=== PATIENT | male | born 1965 | race Caucasian/White ===

== ENCOUNTER 2021-11-01 12:48 | Outpatient (CLI) | payer BC ==
[2021-11-01 15:21] LABS: Hemoglobin 14.4 g/dL (13.5-17.5); Mean Corpuscular HGB CONC 32.9 g/dL (32.0-36.0); Mean Corpuscular Hemoglobin 29.9 pg (27.0-33.0); Mean Corpuscular Volume 90.9 fl (81.2-95.1); Mean Platelet Volume 11.2 fl (7.4-10.4); Platelet Count 215 10x3/uL (150-450); RBC Distribution Width 12.4 % (11.5-14.5); Red Blood Cell (RBC) Count 4.82 10x6/uL (4.32-5.72); White Blood Cell (WBC) Count 6.3 10x3/uL (3.5-10.5)
[2021-11-01 15:54] LABS: Anion Gap 13 mmol/L (10-20); BUN (Urea Nitrogen) 15 mg/dL (8.4-25.7); Calc. Creatinine Clearance 0 mL/min (70-130); Calcium 9.3 mg/dL (7.8-10.44); Carbon Dioxide 27 mmol/L (22-29); Chloride 102 mmol/L (98-107); Glucose 215 mg/dL (70-105); Potassium 4.2 mmol/L (3.5-5.1); Sodium 138 mmol/L (136-145)
[2021-11-02 08:59] LABS: SARS-CoV-2 PCR by NAA Not Detected (NotDetected)
== END 2021-11-01 12:49 | disposition home or self-care (01) ==
LOC: LABBT 12:48
PROVIDERS: ATTEND Neurological Surgery
DX: Z01.818 Encounter for other preprocedural examination (principal); D17.1 Benign lipomatous neoplasm of skin and subcutaneous tissue of trunk; Z20.822 Contact with and (suspected) exposure to COVID-19
CPT/HCPCS: 80048; 85027; 93005; 93010; U0003; U0005

== ENCOUNTER 2021-11-04 05:51 | Day surgery (SDC) | payer BC ==
[2021-11-03 12:01] VITALS: BMI 41.1
[2021-11-04] MEDS ORDERED: ceFAZolin 2 GM/DEX 5% 100 ML BAG ONE (06:05)
[2021-11-04] MEDS ORDERED: Acetaminophen 500 MG TAB ONE (06:05)
[2021-11-04] MEDS ORDERED: Ketorolac Tromethamine 30 MG/ML VIAL ONE (06:05)
[2021-11-04] MEDS ORDERED: Sodium Bicarbonate 2.5 MEQ/5 ML VIAL ONE (06:39)
[2021-11-04] MEDS ORDERED: EPINEPHrine 1 MG/ML AMP ONE (06:39)
[2021-11-04] MEDS ORDERED: Bupivacaine 0.25% 10 ML VIAL ONE (06:39)
[2021-11-04] MEDS ORDERED: Fentanyl 100 MCG/2 ML VIAL ONE ×2 (06:49→09:09)
[2021-11-04] MEDS ORDERED: Midazolam HCl 2 mg/2 ml Vial ONE (06:49)
[2021-11-04] MEDS ORDERED: Rocuronium Bromide 10 MG/ML (10ML VIAL) ONE (07:30)
[2021-11-04] MEDS ORDERED: Dexamethasone 20 MG/5 ML VIAL ONE (07:30)
[2021-11-04] MEDS ORDERED: Glycopyrrolate 0.2 MG/ML 5 ML SYRINGE ONE ×2 (07:30)
[2021-11-04] MEDS ORDERED: Lidocaine 1% PF 5 ML VIAL ONE (07:30)
[2021-11-04] MEDS ORDERED: Ondansetron PF 4 MG/2 ML Vial ONE (07:30)
[2021-11-04] MEDS ORDERED: PROPOFOL 200 MG/20 ML VIAL ONE (07:30)
[2021-11-04] MEDS ORDERED: SUGAMMADEX SODIUM 200 MG/2 ML VIAL ONE (08:06)
== END 2021-11-04 10:26 | disposition home or self-care (01) ==
LOC: SDC 05:51
PROVIDERS: ATTEND Specialist
PROC: 0JB70ZZ Excision of Back Subcutaneous Tissue and Fascia, Open Approach (ICD-10-PCS; principal; 2021-11-04)
PROC: 0JQ70ZZ Repair Back Subcutaneous Tissue and Fascia, Open Approach (ICD-10-PCS; principal; 2021-11-04)
DX: D17.1 Benign lipomatous neoplasm of skin and subcutaneous tissue of trunk (principal); I10 Essential (primary) hypertension; E11.9 Type 2 diabetes mellitus without complications; E78.00 Pure hypercholesterolemia, unspecified; E66.01 Morbid (severe) obesity due to excess calories; Z68.41 Body mass index [BMI] 40.0-44.9, adult; Z79.84 Long term (current) use of oral hypoglycemic drugs; Z79.899 Other long term (current) drug therapy; Z87.891 Personal history of nicotine dependence
CPT/HCPCS: 88304; J0171; J1100; J1885; J2250; J2405; J2704; J3010; S0020